=== PATIENT | male | born 1960 | race Asian ===

== ENCOUNTER 2018-04-26 00:04 | Emergency (ER) | payer OTHER ==
[~2018-04-26] VITALS: Ht 160 cm; Wt 72.6 kg
[2018-04-26 00:16] VITALS: BP 146/88
[2018-04-26 00:41] LABS: APPEARANCE,URINE SL CLOUDY (CLEAR); BILIRUBIN,URINE NEGATIVE (NEGATIVE); BLOOD, URINE 3+ Ery/uL (NEGATIVE); COLOR,URINE RED (YELLOW); KETONES,URINE NEGATIVE (NEGATIVE); LEUKOCYTE ESTERASE ,URINE 3+ (NEGATIVE); NITRITE, URINE NEGATIVE (NEGATIVE); PROTEIN,URINE 2+ mg/dl (NEGATIVE); UGLUCOSE NEGATIVE (NEGATIVE); UROBILINOGEN,URINE 0.2 EU/dL (0.2)
[2018-04-26 01:15] LABS: BACTERIA,URINE Few /HPF (None Seen); WBC,URINE 51-80 /HPF (0-3)
[2018-04-26 01:16] LABS: SQUAMOUS EPITHELIAL CELL,UR Rare /HPF (None Seen)
[2018-04-26] MEDS ORDERED: PHENAZOPYRIDINE HCL 200 MG TABLET ONE (01:51)
[2018-04-26] MEDS ORDERED: NITROFURANTOIN/NITROFURAN MAC 100 MG CAPSULE ONE (01:51)
[2018-04-26] MEDS ORDERED: NITROFURANTOIN/NITROFURAN MAC 100 MG CAPSULE PO ONE (02:00)
[2018-04-26] MEDS ORDERED: PHENAZOPYRIDINE HCL 200 MG TABLET PO ONE (02:00)
== END 2018-04-26 01:55 | disposition home or self-care (01) ==
LOC: ER 00:06
DX: N30.80 Other cystitis without hematuria (principal); I10 Essential (primary) hypertension
CPT/HCPCS: 81001; 87077; 87086; 87186; 99284; A4606; Z7610; 81000-TC